=== PATIENT | male | born 1960 | race Two or more races ===

== ENCOUNTER 2023-05-10 10:15 | Emergency (ER) | payer OTHER ==
[~2023-05-10] VITALS: Ht 175.3 cm; Wt 112.0 kg
[2023-05-10 10:49] VITALS: BP 136/79; PULSE 69; RESP 18; TEMP 97.5; O2SAT 99
[2023-05-10] MEDS ORDERED: FLUORESCEIN SOD OPTH TEST STRIP LEFTEYE ONE (12:15)
[2023-05-10] MEDS ORDERED: TOBR0.3S37 OP ×3 (12:43→14:18)
== END 2023-05-10 12:49 | disposition home or self-care (01) ==
LOC: ER 10:15
DX: T15.02XA Foreign body in cornea, left eye, initial encounter (principal); I10 Essential (primary) hypertension; E78.5 Hyperlipidemia, unspecified; Z98.890 Other specified postprocedural states; X58.XXXA Exposure to other specified factors, initial encounter; Y93.89 Activity, other specified; Y92.89 Other specified places as the place of occurrence of the external cause; Y99.8 Other external cause status

== ENCOUNTER 2024-05-15 07:24 | Emergency (ER) | payer OTHER ==
[~2024-05-15] VITALS: Ht 175.3 cm; Wt 110.0 kg
[~2024-05-15 07:24] MED LIST: TOBR0.3S37 OP
[2024-05-15 08:56] VITALS: BP 137/87; PULSE 72; RESP 16; TEMP 98.1; O2SAT 96
[2024-05-15] MEDS ORDERED: ERY05OO OP (09:41)
[2024-05-15] MEDS ORDERED: KETO0.5S31 EACHEYE (09:41)
== END 2024-05-15 09:45 | disposition home or self-care (01) ==
LOC: ER 07:24
DX: H20.9 Unspecified iridocyclitis (principal); Z79.899 Other long term (current) drug therapy